=== PATIENT | male | born 1955 | race Caucasian/White ===

== ENCOUNTER → 2018-01-10 | Outpatient (CLI) | payer BC | LOC: GMAH 11:41 | PROVIDERS: ATTEND Family Medicine | DX: I10 Essential (primary) hypertension (principal); Z12.5 Encounter for screening for malignant neoplasm of prostate ==

== ENCOUNTER 2018-02-18 19:08 | Emergency (ER) | payer BC ==
--- NOTE | 2018-02-18 20:28 | RAD ---
EXAM DESCRIPTION: Abdomen Series CLINICAL HISTORY: 62 years Male, syncope, epigastric pain COMPARISON: Chest x-ray August 22, 2008. FINDINGS: No consolidation. No pneumothorax. No significant pleural effusion. Cardiomediastinal silhouette is unremarkable. Bowel gas pattern appears nonobstructive. No free intraperitoneal air. A few small calcific densities in the pelvis are suggestive of phleboliths. Sternotomy changes are present. IMPRESSION: No acute findings. Electronically signed by: Luis Doran MD 02/18/2018 8:26 PM CDT
[2018-02-18] MEDS ORDERED: SODIUM CHLORIDE 0.9% 1000ML 1,000 ML IVS ONE (20:49)
[2018-02-18 22:17] VITALS: TEMP 97.4
--- NOTE | 2018-02-18 23:34 | ED.PDOC ---
History of Present Illness - General Chief Complaint: Syncope/Near Syncope Stated Complaint: Syncope Time Seen by Provider: 02/18/18 19:10 Source: patient Exam Limitations: no limitations - History of Present Illness Initial Comments: the patient is a 62-year-old male presenting to the emergency room after a couple of near syncopal episodes. The patient has been working outside for the last 3 days and not drinking enough water. Additionally he just had done eating and having 2 or 3 glasses of wine. The patient went to stand up and got lightheaded and saw stars. He was able to lower himself to the ground. A couple of times people try to help him up but he became dizzy again. After EMS got a liter of fluid in and he is feeling much better. He has not had any chest pain or palpitations. No focal neurological changes. No previous issues with syncope or near syncope. Recently he has intentionally lost about 25 pounds and is still on the same blood pressure medications. He did have 3 stents placed several months ago. Timing/Duration: unsure Severity: moderate Improving Factors: nothing Worsening Factors: other - standing Associated Symptoms: malaise Allergies/Adverse Reactions: Allergies NO KNOWN ALLERGY Allergy (Verified 02/18/18 20:48) Home Medications: Ambulatory Orders Aspirin [(None)] 325 mg PO QD 02/18/18 Carbamazepine [Carbatrol] 600 mg PO BEDTIME 02/18/18 Carbamazepine [Carbatrol] 900 mg PO 0700 02/18/18 Cetirizine HCl [Zyrtec] 10 mg PO DAILY 02/18/18 Clopidogrel Bisulfate [Clopidogrel] 100 mg PO DAILY 02/18/18 Isosorbide Mononitrate [Imdur] 30 mg PO QD 02/18/18 Lisinopril 10 mg PO DAILY@0700 02/18/18 Metoprolol Tartrate [Lopressor] 25 mg PO BID 02/18/18 Multiple Vitamins W/ Minerals [Multivitamin Adults] 1 tab PO DAILY 02/18/18 Rosuvastatin Calcium [Crestor] 40 mg PO BEDTIME 02/18/18 Review of Systems - Review of Systems Constitutional: States: malaise EENTM: States: no symptoms reported Respiratory: States: no symptoms reported Cardiology: States: no symptoms reported Gastrointestinal/Abdominal: States: no symptoms reported Genitourinary: States: no symptoms reported Musculoskeletal: States: no symptoms reported Skin: States: no symptoms reported Neurological: States: other - syncope Endocrine: States: no symptoms reported All other Systems: No Change from Baseline Past Medical History (General) - Patient Medical History Hx Seizures: Yes - controlled Hx Cardiac Disorders: Yes - triple bypass, stents, atypical angina Hx Congestive Heart Failure: No Hx Hypertension: Yes Hx Cancer: No Hx Hepatitis C: No Surgical History: coronary bypass surgery - Vaccination History Hx Tetanus, Diphtheria Vaccination: No Hx Influenza Vaccination: No Hx Pneumococcal Vaccination: No - Social History Hx Tobacco Use: No Hx Alcohol Use: Yes Hx Substance Use: No Hx Substance Use Treatment: No Hx Depression: No Family Medical History - Family History Father Family History: Unknown Physical Exam - Physical Exam General Appearance: Alert, Comfortable, No apparent distress, Other - the patient is quite jovial and entertaining. He is in no distress. Eye Exam: bilateral normal Ears, Nose, Throat: hearing grossly normal, normal ENT inspection, normal pharynx Neck: full range of motion, supple Respiratory: lungs clear, normal breath sounds, no respiratory distress, no accessory muscle use Cardiovascular/Chest: normal peripheral pulses, regular rate, rhythm, no edema Peripheral Pulses: radial,right: 2+, radial,left: 2+, dorsalis pedis,right: 2+, dorsalis pedis,left: 2+ Gastrointestinal/Abdominal: non tender, soft Rectal Exam: deferred Back Exam: normal inspection, no CVA tenderness Extremity: normal range of motion, non-tender, normal inspection, no pedal edema , normal capillary refill 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, alert, normal mood/affect, oriented x 3 Skin Exam: normal color Comments: Vital Signs - 24 hr 02/18/18 02/18/18 02/18/18 19:19 19:31 19:54 Temperature 96.5 F L 96.5 F L Pulse Rate [ 67 67 60 left] Respiratory 18 20 20 Rate Blood Pressure 101/61 103/59 [left] O2 Sat by Pulse 96 99 Oximetry 02/18/18 02/18/18 02/18/18 19:55 20:27 21:00 Temperature 96.5 F L 97.1 F L Pulse Rate [ 70 67 65 left] Respiratory 20 20 20 Rate Blood Pressure 103/62 111/62 113/62 [left] O2 Sat by Pulse 98 98 96 Oximetry 02/18/18 02/18/18 21:18 22:16 Temperature 97.1 F L 97.4 F L Pulse Rate [ 65 64 left] Respiratory 20 20 Rate Blood Pressure 122/61 141/81 [left] O2 Sat by Pulse 95 95 Oximetry Progress - Progress Progress: 02/18/18 23:35 the patient is a 62-year-old male presenting to the emergency room after one syncopal and several near syncopal episodes. The patient does have some acute renal failure from dehydration which is also contributed to his orthostasis and syncope from that. He has received 2 L of IV fluid. He does need to increase his fluid intake. I would encourage him to hold his lisinopril until he is reevaluated by his primary care doctor. He likely needs a reduction in blood pressure medication dosage with his weight loss. 2 sets of cardiac enzymes show no evidence of any rise in troponin. He is not having any symptoms of a heart attack. his EKG is reassuring. Chest x-ray is reassuring. The patient will be discharged home. He does have some significant hyponatremia that does need to be followed up and managed further with his primary care doctor. - Results/Orders Results/Orders: Laboratory Tests 02/18/18 02/18/18 02/18/18 19:38 19:38 19:38 WBC 5.8 RBC 4.28 L Hgb 13.3 L Hct 39.7 L MCV 92.6 MCH 31.0 MCHC 33.7 RDW 13.0 Plt Count 170 MPV 7.9 Absolute Neuts (auto) 4.60 Absolute Lymphs (auto) 0.60 L Absolute Monos (auto) 0.60 Absolute Eos (auto) 0.10 Absolute Basos (auto) 0.10 Neutrophils % 78.5 H Lymphocytes % 9.8 L Monocytes % 9.5 H Eosinophils % 1.0 Basophils % 1.2 PT 10.3 INR 1.03 PTT (SP) 23.9 Sodium 128 L Potassium 4.3 Chloride 95 L Carbon Dioxide 20 L Anion Gap 17.3 BUN 29 H Creatinine 1.60 H BUN/Creatinine Ratio 18.1 Random Glucose 121 H Serum Osmolality 264.2 L Calcium 9.5 Total Bilirubin 0.4 AST 30 ALT 21 Alkaline Phosphatase 51 Creatine Kinase 344 H* CK-MB (CK-2) 8.1 H* CK-MB (CK-2) % 2.35 Troponin I < 0.02 B-Natriuretic Peptide 32.0 Serum Total Protein 6.5 Albumin 4.3 Globulin 2.2 L Albumin/Globulin Ratio 2.0 H 02/18/18 22:53 WBC RBC Hgb Hct MCV MCH MCHC RDW Plt Count MPV Absolute Neuts (auto) Absolute Lymphs (auto) Absolute Monos (auto) Absolute Eos (auto) Absolute Basos (auto) Neutrophils % Lymphocytes % Monocytes % Eosinophils % Basophils % PT INR PTT (SP) Sodium Potassium Chloride Carbon Dioxide Anion Gap BUN Creatinine BUN/Creatinine Ratio Random Glucose Serum Osmolality Calcium Total Bilirubin AST ALT Alkaline Phosphatase Creatine Kinase 341 H* CK-MB (CK-2) 7.9 H* CK-MB (CK-2) % 2.32 Troponin I < 0.02 B-Natriuretic Peptide Serum Total Protein Albumin Globulin Albumin/Globulin Ratio EKG shows normal sinus rhythm with normal axis. [address] segment changes concerning for ischemia. Normal QT interval. Chest x-ray shows no acute pathology. Departure - Departure Clinical Impression: Dehydration, moderate Syncope Qualifiers: Syncope type: unspecified Qualified Code(s): R55 - Syncope and collapse Acute renal failure Qualifiers: Acute renal failure type: unspecified Qualified Code(s): N17.9 - Acute kidney failure, unspecified Disposition: Discharge to Home or Self Care Condition: Fair Departure Forms: ED Discharge - Pt. Copy, Patient Portal Self Enrollment Instructions: DI for Syncope in Adults (Fainting) Diet: regular diet Activity: increase activity as tolerated Referrals: Talha Gonsales MD [Primary Care Provider] - 1-2 Weeks Home Medications: Ambulatory Orders Aspirin [(None)] 325 mg PO QD 02/18/18 Carbamazepine [Carbatrol] 600 mg PO BEDTIME 02/18/18 Carbamazepine [Carbatrol] 900 mg PO 0700 02/18/18 Cetirizine HCl [Zyrtec] 10 mg PO DAILY 02/18/18 Clopidogrel Bisulfate [Clopidogrel] 100 mg PO DAILY 02/18/18 Isosorbide Mononitrate [Imdur] 30 mg PO QD 02/18/18 Lisinopril 10 mg PO DAILY@0700 02/18/18 Metoprolol Tartrate [Lopressor] 25 mg PO BID 02/18/18 Multiple Vitamins W/ Minerals [Multivitamin Adults] 1 tab PO DAILY 02/18/18 Rosuvastatin Calcium [Crestor] 40 mg PO BEDTIME 02/18/18 Additional Instructions: the patient is a 62-year-old male presenting to the emergency room after one syncopal and several near syncopal episodes. The patient does have some acute renal failure from dehydration which is also contributed to his orthostasis and syncope from that. He has received 2 L of IV fluid. He does need to increase his fluid intake. I would encourage him to hold his lisinopril until he is reevaluated by his primary care doctor. He likely needs a reduction in blood pressure medication dosage with his weight loss. 2 sets of cardiac enzymes show no evidence of any rise in troponin. He is not having any symptoms of a heart attack. his EKG is reassuring. Chest x-ray is reassuring. The patient will be discharged home. He does have some significant hyponatremia that does need to be followed up and managed further with his primary care doctor.
[2018-02-18 23:37] VITALS: O2SAT 96
[2018-02-18 23:47] VITALS: BP 123/67
== END 2018-02-18 23:45 | disposition home or self-care (01) ==
LOC: ER 19:08
DX: R55 Syncope and collapse (principal); E86.0 Dehydration; N17.9 Acute kidney failure, unspecified; I51.9 Heart disease, unspecified; R56.9 Unspecified convulsions; I10 Essential (primary) hypertension; Z95.1 Presence of aortocoronary bypass graft; Z95.5 Presence of coronary angioplasty implant and graft; Z79.82 Long term (current) use of aspirin; Z79.899 Other long term (current) drug therapy
CPT/HCPCS: 36415; 74019; 80053; 82550; 82553; 83880; 84484; 85025; 85610; 85730; 93005; J7030

== ENCOUNTER → 2019-02-21 | Outpatient (CLI) | payer BC | LOC: GMA MATASK 10:38 | PROVIDERS: ATTEND Family Medicine | DX: Z00.00 Encounter for general adult medical examination without abnormal findings (principal); Z12.5 Encounter for screening for malignant neoplasm of prostate ==